=== PATIENT | male | born 1940 ===

== ENCOUNTER 2022-03-10 09:47 | Observation (INO) ==
[~2022-03-10 09:47] MED LIST: Buffered Lidocaine 1% SYRIN 1 ml INTRADERM ONE; Lactated Ringers 1000 ml BAG 1,000 ML IV SCH
[2022-03-10] MEDS ORDERED: ceFAZolin 2 GM PREMIX 2 GM/50 ML BAG ONE (10:11)
[2022-03-10] MEDS ORDERED: ROPIVACAINE 5 MG/ML 30 ML BTL (0.5%) ONE ×2 (10:47→13:00)
[2022-03-10] MEDS ORDERED: Lidocaine 1% MPF 5 ML VIAL ONE (10:47)
[2022-03-10 10:54] LABS: INR 1.05 (0.89-1.11)
[2022-03-10] MEDS ORDERED: Ondansetron 4 mg VIAL 2 MG/ML 2 ml VIAL ONE (11:39)
[2022-03-10] MEDS ORDERED: fentaNYL 100 mcg/2 ml 50 MCG/ML VIAL ONE ×2 (11:39→14:34)
[2022-03-10] MEDS ORDERED: Acetaminophen IV 1 GM/100ML 1,000 MG/100 ML BAG IV ONE (11:39)
[2022-03-10] MEDS ORDERED: Lidocaine 2% PF 5 ML VIAL ONE (11:39)
[2022-03-10] MEDS ORDERED: Dexamethasone IV 4 MG/ML VIAL 1 ml VIAL ONE (11:39)
[2022-03-10] MEDS ORDERED: Propofol 10 MG/ML 20 ML BTL ONE ×2 (11:39→13:52)
[2022-03-10] MEDS ORDERED: Midazolam 2 mg/2 ml VIAL 1 mg/ml 2 ml VIAL (2 mg) ONE (11:40)
[2022-03-10] MEDS ORDERED: Morphine 2 MG/ML SYRINGE IV PRN (14:29)
[2022-03-10] MEDS ORDERED: Ondansetron ODT 4 mg TAB 4 MG TAB PO PRN (14:29)
[2022-03-10] MEDS ORDERED: Ondansetron 4 mg VIAL 2 MG/ML 2 ml VIAL IV PRN (14:29)
[2022-03-10] MEDS ORDERED: Lactulose 30 ml UDC PO PRN (14:29)
[2022-03-10] MEDS ORDERED: Magnesium Hydroxide LIQ 30 ML UDC PO PRN (14:29)
[2022-03-10] MEDS ORDERED: HYDROmorphone 0.5 MG/0.5 ML SYRINGE ONE (14:35)
[2022-03-10] MEDS ORDERED: hydrALAZINE 20 mg/ml 1 ML Vial IV ONE (15:01)
[2022-03-10] MEDS ORDERED: Naloxone 0.4 mg VIAL 0.4 mg/ml 1 ml VIAL IV PRN (15:59)
[2022-03-10] MEDS ORDERED: HYDROmorphone 1 MG/1 ML SYRINGE ONE (16:40)
[2022-03-10] MEDS: HYDROmorphone 1 MG/1 ML SYRINGE IV PRN ×5 (16:44→17:46)
[2022-03-10] MEDS ORDERED: Albuterol HFA INHALER 8 gm MDI INH PRN (17:56)
[2022-03-10] MEDS: Lactated Ringers 1000 ml BAG 1,000 ML IV SCH (18:48)
[2022-03-10] MEDS: Magnesium Hydroxide LIQ 30 ML UDC PO SCH (20:56)
[2022-03-10] MEDS: ceFAZolin 1 GM ADVAN 1 GM in NS 0.9% 50 ML 50 ML IVPB SCH (21:56)
[2022-03-11] MEDS: ceFAZolin 1 GM ADVAN 1 GM in NS 0.9% 50 ML 50 ML IVPB SCH ×2 (06:04→13:04)
[2022-03-11] MEDS: Lactated Ringers 1000 ml BAG 1,000 ML IV SCH (06:04)
[2022-03-11 06:34] LABS: Hematocrit 34 % (42-52); Hemoglobin 11.8 g/dL (14.0-18.0); Mean Platelet Volume 8.1 fL (7.4-10.4); Platelet Count 184 10^3/uL (150-450)
[2022-03-11 06:59] LABS: Calcium 8.6 mg/dL (8.6-10.3); Potassium 4.7 mmol/L (3.5-5.0); eGFR CKD-EPI 64.9 (>60)
[2022-03-11] MEDS: Magnesium Hydroxide LIQ 30 ML UDC PO SCH (08:36)
[2022-03-11] MEDS ORDERED: Vitamin THERAPEUTIC TAB PO SCH (09:00)
[2022-03-11 11:48] VITALS: BP 136/69
== END 2022-03-11 14:30 | disposition home or self-care (01) ==
LOC: INTOOBSV 09:47 → AA 09:47 → SSU 18:17
PROVIDERS: ADMIT Orthopaedic Surgery Adult Reconstructive Orthopaedic Surgery; ATTEND Orthopaedic Surgery Adult Reconstructive Orthopaedic Surgery